=== PATIENT | male | born 1965 | race Caucasian/White ===

== ENCOUNTER 2021-01-07 11:09 | Emergency (ER) | payer BC, OTHER ==
[2021-01-07] MEDS ORDERED: Diphtheria,Pertussis(Acell),Tetanus Vaccine 0.5 ML Syringe IM ONE (11:53)
--- NOTE | 2021-01-07 12:02 | EDM.PDOC ---
ED HPI GENERAL MEDICAL PROBLEM - General Chief Complaint: Trauma Stated Complaint: LEG INJURY Time Seen by Provider: 01/07/21 11:40 - History of Present Illness INITIAL COMMENTS - FREE TEXT/NARRATIVE: 55-year-old male presents the emergency room with a left thigh injury. Patient was helping to move some highway concrete dividers. One of them was wasted up and swung back hitting him in the left thigh and pinning him with the left thigh against another concrete divider. The patient believes he was struck by the steel loop that was attached to the concrete divider. Patient cannot recall when his last tetanus shot was was over 10 years ago. He has a significant abrasion over this area. The patient is able to lightly put weight on this area otherwise has severe pain. The patient has pain that shoots from his pelvis down to below his knee. The patient is developing a large swollen ecchymotic area over his distal lateral femur. Patient is not taking any blood thinners at this time. He is treated for hypertension and hyperlipidemia. Patient denies any other injury associated with this most unfortunate event he did not hit his abdomen chest head or neck. No associated trauma to these areas. Left Upper Posterior Leg Pain Score (Numeric/FACES): 9 - Related Data Allergies Allergy/AdvReac Type Severity Reaction Status Date / Time No Known Allergies Allergy Verified 04/06/14 15:21 Home Meds: Home Meds Pantoprazole Sodium [Protonix] 20 mg PO DAILY 01/07/21 [History] amLODIPine [Norvasc] 5 mg PO DAILY 01/07/21 [History] Review of Systems - Review of Systems Review Of Systems: See Below Constitutional: Reports: No Symptoms Eyes: Reports: No Symptoms Ears: Reports: No Symptoms Nose: Reports: No Symptoms Mouth/Throat: Reports: No Symptoms Respiratory: Reports: No Symptoms Cardiovascular: Reports: No Symptoms GI/Abdominal: Reports: No Symptoms Genitourinary: Reports: No Symptoms Musculoskeletal: Reports: Leg Pain, Other (Pelvis pain) Skin: Reports: No Symptoms Neurological: Reports: No Symptoms ED EXAM, GENERAL - Physical Exam Exam: See Below Exam Limited By: No Limitations General Appearance: Alert, No Apparent Distress Head: Atraumatic, Normocephalic Neck: Normal Inspection, Supple, Non-Tender, Full Range of Motion Respiratory/Chest: No Respiratory Distress, Lungs Clear, Normal Breath Sounds Cardiovascular: Normal Peripheral Pulses, Regular Rate, Rhythm, No Edema GI/Abdominal: Normal Bowel Sounds, Soft, Non-Tender Back Exam: Normal Inspection. No: CVA Tenderness (L), CVA Tenderness (R), Vertebral Tenderness Extremities: Other (Area of ecchymosis left lateral distal thigh with significant swelling and abrasion his pain extends up to his pelvis and down below his knee) Neurological: Other (Neurovascular status of the foot is normal) Psychiatric: Normal Affect, Normal Mood Skin Exam: Warm, Dry, Intact, Other (Abrasion left lateral thigh distal aspect with some developing ecchymosis and swelling) Course - Vital Signs Last Recorded V/S: Last Vital Signs Temp 36.8 C 01/07/21 11:45 Pulse 96 01/07/21 11:45 Resp 20 01/07/21 11:45 BP 149/99 H 01/07/21 11:45 Pulse Ox 97 01/07/21 11:45 - Orders/Labs/Meds Orders: Active Orders 24 hr Category Date Time Status Vaccine to be Administered/Admin Charge [RC] ASDIRECTED Care 01/07/21 11:53 Active MYOGLOBIN, URINE Stat Lab 01/07/21 11:58 Ordered UA RFX ELHAM AND CULT IF INDIC [URIN] Stat Lab 01/07/21 11:59 Ordered Labs: Laboratory Tests 01/07/21 01/07/21 Range/Units 11:53 11:53 WBC 12.10 H (4.23-9.07) K/mm3 RBC 4.73 (4.63-6.08) M/mm3 Hgb 15.4 (13.7-17.5) gm/dl Hct 45.8 (40.1-51.0) % MCV 96.8 H (79.0-92.2) fl MCH 32.6 H (25.7-32.2) pg MCHC 33.6 (32.2-35.5) g/dl RDW Std Deviation 45.4 H (35.1-43.9) fL Plt Count 372 H (163-337) K/mm3 MPV 11.5 (9.4-12.3) fl Neutrophils % (Manual) 73 H (40-60) % Band Neutrophils % 0 (0-10) % Lymphocytes % (Manual) 23 (20-40) % Atypical Lymphs % 0 % Monocytes % (Manual) 4 (2-10) % Eosinophils % (Manual) 0 L (0.8-7.0) % Basophils % (Manual) 0 L (0.2-1.2) Platelet Estimate Adequate Plt Morphology Comment Normal RBC Morph Comment Normal Sodium 141 (136-145) mEq/L Potassium 4.2 (3.5-5.1) mEq/L Chloride 105 (98-107) mEq/L Carbon Dioxide 26 (21-32) mEq/L Anion Gap 14.2 (5-15) BUN 18 (7-18) mg/dL Creatinine 1.3 (0.7-1.3) mg/dL Est Cr Clr Drug Dosing 64.20 mL/min Estimated GFR (MDRD) 57 (>60) mL/min BUN/Creatinine Ratio 13.8 L (14-18) Glucose 136 H (70-99) mg/dL Calcium 8.6 (8.5-10.1) mg/dL Total Bilirubin 0.4 (0.2-1.0) mg/dL AST 16 (15-37) U/L ALT 38 (16-63) U/L Alkaline Phosphatase 90 (46-116) U/L Creatine Kinase 279 (39-308) U/L Total Protein 6.8 (6.4-8.2) g/dl Albumin 4.0 (3.4-5.0) g/dl Globulin 2.8 gm/dL Albumin/Globulin Ratio 1.4 (1-2) Meds: Medications Discontinued Medications Generic Name Dose Route Start Last Admin Trade Name Freq PRN Reason Stop Dose Admin Diphtheria/Tetanus/Acell Pertussis 0.5 ml 01/07/21 11:53 01/07/21 12:50 Diphtheria,Pertussis(Acell),Tetanus Vaccine 0.5 Ml Syringe IM 01/07/21 11:54 0.5 ml .ONCE ONE Administration - Re-Assessments/Exams Free Text/Narrative Re-Assessment/Exam: 01/07/21 16:08 She is doing much better at this time he is up and ambulatory. X-ray examination is negative for any fractures or dislocations discussed with soft tissue swelling noted on the lateral thigh. Lab testing is nondiagnostic. Patient will be discharged home with Tylenol and Motrin as needed for discomfort. He can return to work with light duty. I advised him to push lots of fluids the patient denies any alcohol use. And he understands return immediately to the emergency room if his urine gets dark returns or if there are color. He also will return with any worsening pain or discomfort. Departure - Departure Time of Disposition: 16:09 Disposition: Home, Self-Care 01 Clinical Impression: Contusion of right thigh - Discharge Information Referrals: Octavio Oviedo MD [Primary Care Provider] - Forms: ED Department Discharge, ED Return to Work/School Form Additional Instructions: Return to the emergency room with any questions problems or worsening symptoms. Return immediately if you develop any dark or root beer colored urine. Push lots of fluids to help flush your system out. Tylenol and/or Motrin as needed for discomfort. Follow-up with Workmen's Compensation physician that your organization uses on Monday for recheck. Sepsis Event Note (ED) - Focused Exam Vital Signs: Vital Signs Temp Pulse Resp BP Pulse Ox 01/07/21 11:45 36.8 C 96 20 149/99 H 97 - My Orders Last 24 Hours: My Active Orders 01/07/21 11:53 Vaccine to be Administered/Admin Charge [RC] ASDIRECTED 01/07/21 11:58 MYOGLOBIN, URINE Stat 01/07/21 11:59 UA RFX ELHAM AND CULT IF INDIC [URIN] Stat - Assessment/Plan Last 24 Hours: My Active Orders 01/07/21 11:53 Vaccine to be Administered/Admin Charge [RC] ASDIRECTED 01/07/21 11:58 MYOGLOBIN, URINE Stat 01/07/21 11:59 UA RFX ELHAM AND CULT IF INDIC [URIN] Stat
--- NOTE | 2021-01-07 12:21 | CR ---
Left tibia and fibula: AP and lateral views of the left tibia and fibula were obtained. No fracture or other bony abnormality is seen within the tibia or fibula. Plantar spur is present. Impression: 1. Plantar spur. 2. Nothing acute is seen on left tibia and fibula study. Diagnostic code #2
--- NOTE | 2021-01-07 12:22 | CR ---
Left femur: AP and lateral views of the left femur were obtained. Comparison: No prior femur study is available. Slight medial joint space narrowing is seen within the knee. Joint space within left hip is preserved. No acute fracture or other abnormality is seen. Impression: 1. Mild degenerative change within the knee. 2. Two-view left femur study shows nothing acute. Diagnostic code #2
--- NOTE | 2021-01-07 12:22 | CR ---
Pelvis: AP view of the pelvis was obtained. Comparison: No prior pelvis study is available. Disc space narrowing is seen within the visualized lower lumbar spine. Joint spaces within both hips are maintained. No fracture or other bony abnormality is appreciated. Impression: 1. Degenerative change within the visualized lower lumbar spine. 2. Nothing acute is seen on AP pelvis study. Diagnostic code #2
== END 2021-01-07 16:15 | disposition home or self-care (01) ==
LOC: JD.ED 11:09
DX: S70.11XA Contusion of right thigh, initial encounter (principal); Z79.899 Other long term (current) drug therapy; Z23 Encounter for immunization; W22.09XA Striking against other stationary object, initial encounter
CPT/HCPCS: 36415; 72170; 72170-26; 73552-26-LT; 73552-LT; 73590-26-LT; 73590-LT; 80053; 82550; 85007; 85027; 90471; 90715; 99283-25

== ENCOUNTER → 2021-03-15 | Day surgery (SDC) | payer OTHER, BC ==
[~2021-03-15] MED LIST: Albuterol 0.083% 2.5 MG/3 ML Neb Soln NEB ONE; Bupivacaine 0.25% 10 ML SDV ONE; Lactated Ringers 1,000 ML IV SCH; Lidocaine 1% 4 ML ONE; Lidocaine 1%/Sod Bicarbonate in NS 8.4% 1 ML Syringe IDERM PRN; Propofol 200 MG/20 ML SDV ONE; Sodium Chloride 0.9% 10 ML Syringe FLUSH SCH; ceFAZolin 1 GM Vial ONE
--- NOTE | 2021-03-15 10:19 | PCM.PREANE ---
Preanesthetic Assessment - Procedure Proposed Procedure: Bilateral carpal tunnel release - Anesthesia/Transfusion/Family Hx Anesthesia History: Prior Anesthesia Without Reaction Family History of Anesthesia Reaction: No Transfusion History: No Prior Transfusion(s) Intubation History: Unknown - Review of Systems General: No Symptoms Pulmonary: No Symptoms Cardiovascular: No Symptoms Gastrointestinal: No Symptoms Neurological: No Symptoms, Tingling (bilateral hands and fingers) - Physical Assessment NPO Status Date: 03/14/21 NPO Status Time: 18:00 Vital Signs: 136/81 HR 74 97.6 RR 16 100% RA Height: 1.75 m Weight: 105 kg ASA Class: 2 Mental Status: Alert & Oriented x3 Airway Class: Mallampati = 2 Dentition: Reports: Dentures Thyro-Mental Finger Breadths: 3 Mouth Opening Finger Breadths: 3 ROM/Head Extension: Full Lungs: Clear to Auscultation, Normal Respiratory Effort Cardiovascular: Regular Rate, Regular Rhythm, No Murmurs - Lab Values: Labs reviewed and okay to proceed - Imaging/EKG Impressions: EKG NSR HR 77 - Allergies Allergies/Adverse Reactions: Allergies Allergy/AdvReac Type Severity Reaction Status Date / Time No Known Allergies Allergy Verified 03/14/21 13:37 - Acknowledgements Anesthesia Type Planned: MAC Pt an Appropriate Candidate for the Planned Anesthesia: Yes Alternatives and Risks of Anesthesia Discussed w Pt/Guardian: Yes Pt/Guardian Understands and Agrees with Anesthesia Plan: Yes PreAnesthesia Questionnaire HEENT History: Reports: None Cardiovascular History: Reports: Hypertension Respiratory History: Reports: None, Other (See Below) (Smoker) Gastrointestinal History: Reports: GERD, Other (See Below) Other Gastrointestinal History: dyspepsia Genitourinary History: Reports: None 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 Musculoskeletal History: Reports: None Neurological History: Reports: None Psychiatric History: Reports: None Endocrine/Metabolic History: Reports: None Hematologic History: Reports: None Immunologic History: Reports: None Oncologic (Cancer) History: Reports: None Dermatologic History: Reports: None - Infectious Disease History Infectious Disease History: Reports: None - Past Surgical History Head Surgeries/Procedures: Reports: None HEENT Surgical History: Reports: None Cardiovascular Surgical History: Reports: None Respiratory Surgical History: Reports: None Female Surgical History: Reports: None Male Surgical History: Reports: None Endocrine Surgical History: Reports: None Neurological Surgical History: Reports: None Musculoskeletal Surgical History: Reports: Other (See Below) Other Musculoskeletal Surgeries/Procedures:: right hip surgery, right foot surgery Oncologic Surgical History: Reports: None Dermatological Surgical History: Reports: None - SUBSTANCE USE Tobacco Use Status *Q: Current Every Day Tobacco User Tobacco Use Within Last Twelve Months: Cigarettes Second Hand Smoke Exposure: No Days Per Week of Alcohol Use: 0 Number of Drinks Per Day: 0 Total Drinks Per Week: 0 Recreational Drug Use History: No - HOME MEDS Home Medications: Home Meds Pantoprazole Sodium [Protonix] 20 mg PO DAILY 01/07/21 [History] amLODIPine [Norvasc] 5 mg PO DAILY 01/07/21 [History] Hydrocodone/Acetaminophen [HYDROcodone-Acetaminophen 5-325 MG] 1 - 2 each PO Q6H PRN #10 tablet 03/12/21 [Rx] Sildenafil Citrate [Viagra] 50 mg PO ASDIRECTED PRN 03/14/21 [History] - CURRENT (IN HOUSE) MEDS Current Meds: Current Medications Lactated Ringer's (Ringers, Lactated) 1,000 mls @ 125 mls/hr IV ASDIRECTED ORTIZ Stop: 03/15/21 23:00 Lidocaine/Sodium Bicarbonate (Lidocaine 1%/Sod Bicarbonate In Ns 8.4% 1 Ml Syringe) 0.25 ml IDERM ONETIME PRN PRN Reason: Prior to IV Start Stop: 03/15/21 18:00 Sodium Chloride (Sodium Chloride 0.9% 10 Ml Syringe) 10 ml FLUSH 0900,2100 PENDING SALE TO [facility] Stop: 03/15/21 18:00
[2021-03-15] MEDS: Bupivacaine 0.25% 10 ML SDV ONE ×2 (12:52→13:04)
[2021-03-15] MEDS: Lidocaine 1% 30 ML SDV ONE ×2 (12:52→13:04)
--- NOTE | 2021-03-15 13:40 | PCM48HPAN ---
Post Anesthesia Note - EVALUATION WITHIN 48HRS OF ANESTHETIC Vital Signs in Normal Range: Yes Patient Participated in Evaluation: Yes Respiratory Function Stable: Yes Airway Patent: Yes Cardiovascular Function Stable: Yes Hydration Status Stable: Yes Pain Control Satisfactory: Yes Nausea and Vomiting Control Satisfactory: Yes Mental Status Recovered: Yes Vital Signs: Last Vital Signs Temp 97.5 F 03/15/21 13:18 Pulse 81 03/15/21 13:18 Resp 14 03/15/21 13:18 BP 117/66 03/15/21 13:18 Pulse Ox 92 L 03/15/21 13:18
--- NOTE | 2021-04-01 08:13 | PCM.OPNOTE ---
- General Post-Op/Procedure Note Date of Surgery/Procedure: 03/15/21 Operative Procedure(s): bilateral carpal tunnel release Pre Op Diagnosis: bilateral median nerve compression neuropathy Post-Op Diagnosis: Same Anesthesia Technique: Local, MAC Primary Surgeon: Eriberto Goldman Anesthesia Provider: Jesus Cox Design Release Engineer: Joycelyn Yen EBL in mLs: 5 Complications: None Condition: Good
--- NOTE | 2021-04-04 21:58 | OR ---
DATE OF OPERATION: 03/15/2021 SURGEON: Eriberto Goldman MD OPERATION PERFORMED: Bilateral carpal tunnel release. PREOPERATIVE DIAGNOSIS: Bilateral median nerve compression neuropathy. POSTOPERATIVE DIAGNOSIS: Bilateral median nerve compression neuropathy. ANESTHESIA: Local MAC. ANESTHESIA PROVIDER: ACADEMIC GUIDANCE SPECIALIST: Joycelyn Yen PA-C ESTIMATED BLOOD LOSS: 5 mL. COMPLICATIONS: None. CONDITION: Stable. DESCRIPTION OF PROCEDURE: The patient was identified in the preop holding area. Proper site was marked and identified by the surgeon. The patient was taken back to the operating theater where after adequate anesthesia, the patient's left upper extremity was sterilely prepped and draped in the usual sterile fashion. OR time-out was performed. The patient did not receive antibiotics and it is not indicated for soft tissue hand procedure. At this time, the left upper extremity was exsanguinated and an Esmarch was used as a tourniquet on the forearm. At this time, using 1% lidocaine without epinephrine and 0.25% Marcaine without epinephrine, the palmar cutaneous branch of the median nerve was anesthetized and then the incisional site was anesthetized using Guerra cardinal line and ulnar border of the fourth digit as reference. Once this had set up, an incision was made. Blunt dissection was taken down to the palmar cutaneous fascia. Palmar cutaneous fascia was incised with a [place] blade. At this time, the transverse carpal ligament was identified. A small rent was made in the transverse carpal ligament with a [place] blade under direct visualization. Resection of the transverse carpal ligament was done distally using tenotomy scissors making sure to stop short of the palmar arch. At this time, attention was turned proximally after it was found to be adequately released. Using the tenotomy scissors keeping the tips ulnar to protect the palmar cutaneous branch of the median nerve, the superficial forearm fascia as well as the transverse carpal ligament were resected proximally. It was found to be adequate release both proximally and distally. At this time, adequate saline was irrigated through the wound. 4-0 nylon sutures were used closure of the skin. The patient was placed in a sterile soft dressing and sent to PACU in stable condition. The patient was identified in the preop holding area. Proper site was marked and identified by the surgeon. The patient was taken back to the operating theater where after adequate anesthesia, the patient's right upper extremity was sterilely prepped and draped in the usual sterile fashion. OR time-out was performed. The patient did not receive antibiotics and it is not indicated for soft tissue hand procedure. At this time, the right upper extremity was exsanguinated and an Esmarch was used as a tourniquet on the forearm. At this time, using 1% lidocaine without epinephrine and 0.25% Marcaine without epinephrine, the palmar cutaneous branch of the median nerve was anesthetized and then the incisional site was anesthetized using Guerra cardinal line and ulnar border of the fourth digit as reference. Once this had set up, an incision was made. Blunt dissection was taken down to the palmar cutaneous fascia. Palmar cutaneous fascia was incised with a [place] blade. At this time, the transverse carpal ligament was identified. A small rent was made in the transverse carpal ligament with a [place] blade under direct visualization. Resection of the transverse carpal ligament was done distally using tenotomy scissors making sure to stop short of the palmar arch. At this time, attention was turned proximally after it was found to be adequately released. Using the tenotomy scissors keeping the tips ulnar to protect the palmar cutaneous branch of the median nerve, the superficial forearm fascia as well as the transverse carpal ligament were resected proximally. It was found to be adequate release both proximally and distally. At this time, adequate saline was irrigated through the wound. 4-0 nylon sutures were used closure of the skin. The patient was placed in a sterile soft dressing and sent to PACU in stable condition. MMODAL /[id number]
== END | disposition home or self-care (01) ==
LOC: JD.SDS 10:40
PROVIDERS: ATTEND Orthopaedic Surgery
DX: G56.13 Other lesions of median nerve, bilateral upper limbs (principal); G56.03 Carpal tunnel syndrome, bilateral upper limbs; I10 Essential (primary) hypertension; K21.9 Gastro-esophageal reflux disease without esophagitis; F17.210 Nicotine dependence, cigarettes, uncomplicated
CPT/HCPCS: 64721; J0690; J2704; J3490; J7120; 01810